=== PATIENT | female | born 1955 | race Caucasian/White ===

== ENCOUNTER 2017-11-15 06:40 | Emergency (ER) | payer BC ==
[~2017-11-15] VITALS: Ht 167.6 cm; Wt 72.6 kg
[~2017-11-15 06:40] MED LIST: ESCI20TA; WELLBUTRIN
[2017-11-15 06:45] VITALS: BP_SYST 209
[2017-11-15] MEDS ORDERED: LABETALOL 100 MG/ 20ML VIAL IVP ONE (07:15)
[2017-11-15] MEDS ORDERED: ONDANSETRON HCL 4 MG/2 ML VIAL IVP ONE ×2 (07:30→08:30)
[2017-11-15 07:43] LABS: BASOPHILS # (AUTO) 0.1 K/uL (0.0-0.2); BASOPHILS % (AUTO) 0.6 % (0.0-2.0); EOSINOPHILS # (AUTO) 0.1 K/uL (0.0-0.4); HEMATOCRIT 48.3 % (36-48); HEMOGLOBIN 16.2 g/dL (12.0-16.0); LYMPHOCYTES # (AUTO) 2.2 K/uL (1.0-5.5); LYMPHOCYTES % (AUTO) 18.8 % (20.5-51.5); MEAN CORPUSCULAR HEMOGLOBIN 29 pg (27-31); MEAN CORPUSCULAR HGB CONC 34 % (32-36); MEAN CORPUSCULAR VOLUME 87 fL (79.0-98.0); MONOCYTES # (AUTO) 0.5 K/uL (0.0-1.0); MONOCYTES % (AUTO) 4.1 % (1.7-9.3); NEUTROPHILS # (AUTO) 8.8 K/uL (1.8-7.7); NEUTROPHILS % (AUTO) 75.5 % (40.0-70.0); PLATELET COUNT (AUTO) 220 K/uL (130-430); RED BLOOD CELL COUNT(AUTO) 5.56 MIL/uL (4.2-6.2); RED CELL DISTRIBUTION WIDTH 14.5 % (9.0-15.0); WHITE BLOOD COUNT (AUTO) 11.6 K/uL (4.8-10.8)
[2017-11-15 07:46] LABS: CALCIUM 9.4 mg/dL (8.4-11.0); CREATININE 0.97 mg/dL (0.55-1.30); POTASSIUM 3.7 mmol/L (3.5-5.1)
[2017-11-15 07:50] LABS: ALBUMIN 4.2 g/dL (3.4-4.8); TOTAL BILIRUBIN 0.3 mg/dL (0.0-1.0)
[2017-11-15 07:55] LABS: INR 0.9 (0.8-1.2); PROTHROMBIN TIME 9.3 SECS (9.5-12.5)
[2017-11-15 08:22] LABS: CKMB RELATIVE INDEX 1.3 (0.0-2.9); CREATINE KINASE MB 2.6 ng/mL (0-3.6)
[2017-11-15] MEDS ORDERED: MORPHINE 4 MG/ML INJ. SYRINGE IVP ONE (08:30)
[2017-11-15] MEDS ORDERED: PROMETHAZINE HCL 25 MG/ML AMP IVP ONE (09:30)
[2017-11-15 10:14] VITALS: BP_SYST 158
== END 2017-11-15 10:14 | disposition home or self-care (01) ==
LOC: SED 06:40
DX: R11.2 Nausea with vomiting, unspecified (principal); R10.13 Epigastric pain; F32.9 Major depressive disorder, single episode, unspecified; K21.9 Gastro-esophageal reflux disease without esophagitis; I10 Essential (primary) hypertension; F17.200 Nicotine dependence, unspecified, uncomplicated
CPT/HCPCS: 36415; 71045; 80053; 82550; 82553; 83690; 84484; 85025; 85610; 93005; 96374; 96375; 96376; 99285; J2270; J2405; J2550; J3490

== ENCOUNTER 2017-11-17 19:37 | Emergency (ER) | payer BC ==
[~2017-11-17] VITALS: Ht 157.5 cm; Wt 84.4 kg
[2017-11-17 19:44] VITALS: BP_SYST 202
[2017-11-17] MEDS: hydrALAZINE HCL 20 MG/ML VIAL IVP ONE ×2 (20:08→20:51)
[2017-11-17] MEDS: ONDANSETRON HCL 4 MG/2 ML VIAL IVP ONE (20:08)
[2017-11-17 20:16] LABS: HEMATOCRIT 48.9 % (36-48); HEMOGLOBIN 16.5 g/dL (12.0-16.0); MEAN CORPUSCULAR HEMOGLOBIN 30 pg (27-31); MEAN CORPUSCULAR HGB CONC 34 % (32-36); MEAN CORPUSCULAR VOLUME 88 fL (79.0-98.0); RED BLOOD CELL COUNT(AUTO) 5.59 MIL/uL (4.2-6.2); WHITE BLOOD COUNT (AUTO) 14.1 K/uL (4.8-10.8)
[2017-11-17 20:17] LABS: BASOPHILS # (AUTO) 0.1 K/uL (0.0-0.2); BASOPHILS % (AUTO) 0.7 % (0.0-2.0); EOSINOPHILS % (AUTO) 0.1 % (0.0-4.0); LYMPHOCYTES # (AUTO) 2.7 K/uL (1.0-5.5); MONOCYTES # (AUTO) 0.8 K/uL (0.0-1.0); MONOCYTES % (AUTO) 5.9 % (1.7-9.3); NEUTROPHILS # (AUTO) 10.5 K/uL (1.8-7.7); NEUTROPHILS % (AUTO) 74.3 % (40.0-70.0); PLATELET COUNT (AUTO) 238 K/uL (130-430); RED CELL DISTRIBUTION WIDTH 13.9 % (9.0-15.0)
[2017-11-17 20:31] LABS: CALCIUM 9.2 mg/dL (8.4-11.0); CREATININE 0.89 mg/dL (0.55-1.30); POTASSIUM 3.4 mmol/L (3.5-5.1); TOTAL BILIRUBIN 0.7 mg/dL (0.0-1.0)
[2017-11-17] MEDS: NS 500 ML IV ONE (20:52)
[2017-11-17] MEDS: KETOROLAC TROMETHAMINE 30 MG VIAL IVP ONE (21:02)
[2017-11-17 21:27] LABS: BILIRUBIN,URINE NEGATIVE (NEGATIVE); CLARITY/URINE CLEAR (CLEAR); COLOR,URINE YELLOW (YELLOW); GLUCOSE,URINE NEGATIVE (NEGATIVE); KETONES,URINE NEGATIVE (NEGATIVE); LEUKOCYTE ESTERASE ,URINE NEGATIVE (NEGATIVE); NITRITE, URINE NEGATIVE (NEGATIVE); PROTEIN URINE 1+ (NEGATIVE); UROBILINOGEN,URINE 0.2 (0.2-1.0)
[2017-11-17 21:30] LABS: BLOOD, URINE TRACE (NEGATIVE)
[2017-11-17 21:38] LABS: BACTERIA,URINE RARE /HPF (None Seen); RBC,URINE 0-3 /HPF (0-3); WBC,URINE 0-3 /HPF (0-3)
[2017-11-17] MEDS: MORPHINE 4 MG/ML INJ. SYRINGE IVP ONE (22:01)
[2017-11-17 23:32] VITALS: BP_SYST 156
== END 2017-11-17 23:32 | disposition home or self-care (01) ==
LOC: SED 19:37
DX: I10 Essential (primary) hypertension (principal); R10.13 Epigastric pain; E86.0 Dehydration; D72.829 Elevated white blood cell count, unspecified; E87.6 Hypokalemia; K21.9 Gastro-esophageal reflux disease without esophagitis; F32.9 Major depressive disorder, single episode, unspecified; F17.210 Nicotine dependence, cigarettes, uncomplicated
CPT/HCPCS: 36415; 71045; 74176; 80053; 81000; 83690; 85025; 96361; 96374; 96375; 96376; 99285; J0360; J1885; J2270; J2405; J7040

== ENCOUNTER 2019-05-04 11:29 | Inpatient (IN) | payer BC ==
[~2019-05-04] VITALS: Ht 157.5 cm; Wt 71.7 kg
[2019-05-04] VITALS (14 sets, daily range): BP systolic 95–151
--- NOTE | 2019-05-04 11:32 | NUR ---
Placed in room 01 . Placed on lunchroom monitor, blood pressure machine and pulse oximeter. To gown for exam. Side rails up.
[2019-05-04] MEDS ORDERED: ALBUTEROL SULFATE 0.083% 2.5 MG/3 ML VIAL.NEB INH ONE (11:45)
[2019-05-04] MEDS ORDERED: IPRATROPIUM BROM 0.5 MG/2.5 ML VIAL.NEB (ATROVENT) INH ONE (11:45)
--- NOTE | 2019-05-04 11:45 | NUR ---
Pt brought by family member, A&Ox4, pt presents to ER with SOB, cough and hepoptysis since last night , pt reports History of lung CA, afebrile, skin pink and warm, cap refill <3, ambulatory, O2 67% at this time, Dr Scott notified, pt placed on 2 L NC.
--- NOTE | 2019-05-04 11:45 | NUR ---
Pt toleratee breathing tx O2 sat improved to 82% on 4l nc.
--- NOTE | 2019-05-04 11:47 | NUR ---
Dr Scott at bedside examining patient
--- NOTE | 2019-05-04 12:15 | NUR ---
Pt receiving ABG.
[2019-05-04 12:28] LABS: BASOPHILS % (AUTO) 0.2 % (0.0-2.0); EOSINOPHILS % (AUTO) 0.5 % (0.0-4.0); HEMATOCRIT 24.6 % (36-48); HEMOGLOBIN 8.2 g/dL (12.0-16.0); LYMPHOCYTES # (AUTO) 1.3 K/uL (1.0-5.5); LYMPHOCYTES % (AUTO) 19.6 % (20.5-51.5); MEAN CORPUSCULAR HEMOGLOBIN 32 pg (27-31); MEAN CORPUSCULAR HGB CONC 34 % (32-36); MEAN CORPUSCULAR VOLUME 95 fL (79.0-98.0); MONOCYTES # (AUTO) 0.4 K/uL (0.0-1.0); MONOCYTES % (AUTO) 5.3 % (1.7-9.3); NEUTROPHILS % (AUTO) 74.4 % (40.0-70.0); PLATELET COUNT (AUTO) 147 K/uL (130-430); RED BLOOD CELL COUNT(AUTO) 2.59 MIL/uL (4.2-6.2); RED CELL DISTRIBUTION WIDTH 19.9 % (9.0-15.0); WHITE BLOOD COUNT (AUTO) 6.7 K/uL (4.8-10.8)
[2019-05-04 12:30] LABS: CALCIUM 9.2 mg/dL (8.4-11.0); CREATININE 1.43 mg/dL (0.55-1.30)
--- NOTE | 2019-05-04 12:40 | NUR ---
Pt reports ease in resp effort. Pt remains in 85-89%.
[2019-05-04 12:42] LABS: POTASSIUM 2.8 mmol/L (3.5-5.1)
[2019-05-04 12:43] LABS: ALBUMIN 2.7 g/dL (3.4-4.8); TOTAL BILIRUBIN 1.1 mg/dL (0.0-1.0)
--- NOTE | 2019-05-04 13:00 | NUR ---
Medication reconciliation completed with information provided by PT. Any prior medication reconciliation on file was reviewed and corrected.
[2019-05-04 13:04] LABS: C-REACTIVE PROTEIN QUANT 35.2 mg/dL (0-0.5)
[2019-05-04] MEDS ORDERED: PIPERACILLIN/TAZOBACTAM 3.375 GM/VIAL (ZOSYN) IV ONE (13:30)
[2019-05-04] MEDS ORDERED: methylPREDNISolone SOD SUCC/PF 62.5 MG/ML VIAL ONE (13:32)
--- NOTE | 2019-05-04 13:35 | NUR ---
Pt reports Chem tx.on thursday
[2019-05-04] MEDS ORDERED: ALBUTEROL SULFATE 0.083% 2.5 MG/3 ML VIAL.NEB INH PRN (13:45)
[2019-05-04] MEDS ORDERED: BUPR75TA20 PO (13:50)
[2019-05-04] MEDS ORDERED: HYDR-4274 PO (13:50)
[2019-05-04] MEDS ORDERED: NEU300 PO (13:50)
[2019-05-04] MEDS ORDERED: ESCI10TA PO (13:50)
[2019-05-04] MEDS ORDERED: POTASSIUM CHLORIDE 20 MEQ/PKT PACKET PO ONE (14:00)
[2019-05-04] MEDS ORDERED: methylPREDNISolone SOD SUCC/PF 62.5 MG/ML VIAL IVP SCH (14:00)
--- NOTE | 2019-05-04 14:00 | NUR ---
2nd lactic acid drawn .Pt solumedrol and Zosyn.
[2019-05-04] MEDS: PIPERACILLIN/TAZO 2.25G/DEX-IS 50 ML IV SCH ×2 (14:15→23:16)
--- NOTE | 2019-05-04 14:30 | NUR ---
Received pt from ER to ICU bed 5 via shaina. Pt alert and c/o SOB. RR 28 and 02 70's with 50% 02 via . Lungs diminished RLL and pt has a very congested coarse cough. Pt is not bringing up sputum at this time, although she says she was in at home. VSS. SR on monitor. 20g Right AC saline lock in place. Abd soft with bowel sounds. No swelling. Good pulses. Will continue to monitor [address] Abrahan monet for consult. Call vilchis in reach.
--- NOTE | 2019-05-04 14:35 | NUR ---
Patient will be admitted to care of . Admitted to ICU unit. Will go to room ICU 5. Belongings list completed. Summary report printed. Report will be given at bedside.
--- NOTE | 2019-05-04 14:52 | NUR ---
CONSULT PAGED CONSULTING MD: DR. VITAL CONSULTING SPECIALITY: PULMO. SPOKE TO: MERCEDES DIALED: [phone] ORDERED BY: DR. CHENG
[2019-05-04] MEDS: GABAPENTIN 300 MG CAPSULE PO SCH ×2 (15:00→20:01)
--- NOTE | 2019-05-04 15:07 | NUR ---
report given to Loren to assume care. Questions answered.
--- NOTE | 2019-05-04 15:07 | NUR ---
Assumed care of pt. Received report from endorsing RN. Pt states no pain at this time and also states, "I feel better than when I came in." Pt situated to room and call light.
--- NOTE | 2019-05-04 15:45 | NUR ---
Patient off unit to radiology via bed with continuous monitoring and O2, RN present.
--- NOTE | 2019-05-04 15:47 | NUR ---
Called Dr. Scott's exchange and requested to speak with him regarding the patient. Spoke with Eri and she said she would page him. Addendum: 05/04/19 at 1551 by Aneta Medina RN Above entry made on the wrong patient
--- NOTE | 2019-05-04 15:50 | NUR ---
Pt return to unit from CT. Situated pt to room. Pt also placed on hi-flow O2 NC 90%. Pt saturating in 80-84%. Pt educated on breathing through nose.
[2019-05-04] MEDS: ALBUTEROL SULFATE 0.083% 2.5 MG/3 ML VIAL.NEB INH SCH ×3 (16:11→23:25)
--- NOTE | 2019-05-04 16:18 | NUR ---
1550 placed pt on hi flow nc. 90% fi02 @55L flow. sat 91% hr 86 rr10. Rn aware. will continue to monitor pt. Addendum: 05/04/19 at 1622 by Luisa Kline RT Amended: Links added.
[2019-05-04] MEDS ORDERED: POTASSIUM CHLORIDE 20 MEQ TAB.PRT.SR PO ONE (17:00)
[2019-05-04] MEDS: 0.45% NACL 1,000 ML IV SCH (17:14)
[2019-05-04] MEDS ORDERED: PIPERACILLIN/TAZO 2.25G/DEX-IS 50 ML IV SCH (18:00)
--- NOTE | 2019-05-04 19:05 | NUR ---
PM ASSESSMENT Pt in bed with eyes open resting comfortably. No signs of acute distress or discomfort noted. Family at bedside. VSS with SR seen on the monitor. Pt on high flow O2 90% fio2, tolerating well with O2 sats @ 93% and even and unlabored breathing. Pt has R AC 20g c/d/i, infusing 1/2 NS @ 60 cc/hr. Pt NPO except meds. Pt uses bedside commode. Pt doesn't verbalize any needs at this time. Bed is locked and lowest position, call light within reach, will cont to monitor.
--- NOTE | 2019-05-04 19:08 | NUR ---
Endorsed plan of care to night baker RN via SBAR and bedside round. Pt states no pain or distress at this time.
[2019-05-04] MEDS: methylPREDNISolone SOD SUCC/PF 62.5 MG/ML VIAL IVP SCH (21:41)
--- NOTE | 2019-05-04 21:41 | NUR ---
Pt in bed with eyes closed resting comfortably, no signs of acute distress or discomfort noted. Scheduled medication solu-medrol 60 mg IVP given per MD order. Pt tolerated medication well. Bed is locked and in lowest position, call light within reach, will cont to monitor pt.
[2019-05-05] VITALS (24 sets, daily range): BP systolic 89–135
--- NOTE | 2019-05-05 01:45 | NUR ---
Pt in bed with eyes closed resting comfortably, no signs of acute distress or discomfort noted. Will cont to monitor pt.
[2019-05-05] MEDS: ALBUTEROL SULFATE 0.083% 2.5 MG/3 ML VIAL.NEB INH SCH ×5 (03:00→23:58)
[2019-05-05] MEDS: PIPERACILLIN/TAZO 2.25G/DEX-IS 50 ML IV SCH ×4 (05:03→23:56)
[2019-05-05] MEDS: methylPREDNISolone SOD SUCC/PF 62.5 MG/ML VIAL IVP SCH ×3 (05:03→21:33)
--- NOTE | 2019-05-05 05:10 | NUR ---
CHG Offered CHG bath to pt at this time but pt refused stating "I'll get it during the day, I want to sleep". Educated pt on the benefits of CHG bath. Will cont to monitor pt.
[2019-05-05 05:33] LABS: HEMATOCRIT 22.8 % (36-48); HEMOGLOBIN 7.7 g/dL (12.0-16.0); LYMPHOCYTES # (AUTO) 0.5 K/uL (1.0-5.5); LYMPHOCYTES % (AUTO) 9.7 % (20.5-51.5); MEAN CORPUSCULAR HEMOGLOBIN 32 pg (27-31); MEAN CORPUSCULAR HGB CONC 34 % (32-36); MEAN CORPUSCULAR VOLUME 94 fL (79.0-98.0); MONOCYTES # (AUTO) 0.1 K/uL (0.0-1.0); NEUTROPHILS # (AUTO) 4.4 K/uL (1.8-7.7); NEUTROPHILS % (AUTO) 88.3 % (40.0-70.0); PLATELET COUNT (AUTO) 122 K/uL (130-430); RED BLOOD CELL COUNT(AUTO) 2.43 MIL/uL (4.2-6.2); RED CELL DISTRIBUTION WIDTH 19.7 % (9.0-15.0)
--- NOTE | 2019-05-05 05:53 | NUR ---
Nutrition Update Gil Scale 16 noted. Pt admitted for Respiratory Failure Diet: NPO BMI: 28.9 kg/m2 RD to follow per nutrition care standards.
[2019-05-05 05:57] LABS: ALBUMIN 2.5 g/dL (3.4-4.8); CREATININE 1.26 mg/dL (0.55-1.30); POTASSIUM 3.2 mmol/L (3.5-5.1); TOTAL BILIRUBIN 0.7 mg/dL (0.0-1.0)
--- NOTE | 2019-05-05 07:05 | NUR ---
Endorsement Received shift report from yelena TANNER
--- NOTE | 2019-05-05 07:10 | NUR ---
AM Assessment Lights off, Pt on Hi-Flow 90%. Bed in Low position locked. Pt resting with no signs of distress.
--- NOTE | 2019-05-05 07:19 | NUR ---
ENDORSEMENT Report given to oncoming dayshift RN using SBAR format and pt care was endorsed. No signs of acute distress or discomfort noted.
--- NOTE | 2019-05-05 07:30 | NUR ---
SCD applied per order.
--- NOTE | 2019-05-05 09:28 | NUR ---
0730 FLOW RATE 50L FI02 90% SAT 95%. PT TOLERATING HI FLOW. Addendum: 05/05/19 at 0929 by Luisa Kline RT Amended: Links added.
[2019-05-05] MEDS: GABAPENTIN 300 MG CAPSULE PO SCH ×3 (09:54→21:33)
[2019-05-05] MEDS: buPROPion HCL 75 MG TABLET PO SCH (09:54)
[2019-05-05] MEDS: CITALOPRAM HYDROBROMIDE 20 MG TABLET PO SCH (09:55)
[2019-05-05] MEDS: 0.45% NACL 1,000 ML IV SCH (09:55)
--- NOTE | 2019-05-05 11:30 | NUR ---
Pt ate 75% of Breakfast. Pt is resting comfortably watching TV with Spouse at bedside. Holding lunch per MD order.
--- NOTE | 2019-05-05 13:50 | NUR ---
SS contact for ICU Pt. HEAD OF SALES AND MARKETING met with pt. who is managed by TAYLA to introduce self an inquiry if there are any SS need. She did not report any at this time. She is waiting for TAYLA to contact her in regards to Palliative and will discuss with them if it is recommended. SS will remain available as needed.
--- NOTE | 2019-05-05 14:15 | NUR ---
MD Rounds Dr Gauthier at bedside.
--- NOTE | 2019-05-05 15:00 | NUR ---
Pt complaining of leg pain 8 out of 10. Will administer PRN Oxy.
[2019-05-05] MEDS ORDERED: MORPHINE 2 MG/ML INJ. SYRINGE IVP PRN (15:30)
[2019-05-05] MEDS ORDERED: guaiFENesin 200 MG/CODEINE 20 MG/ 10 ML UDC PO PRN (15:30)
[2019-05-05] MEDS ORDERED: POTASSIUM CHLORIDE 20 MEQ TAB.PRT.SR PO ONE (15:30)
[2019-05-05] MEDS: HYDROcodone/ACETAMIN 10-325 MG TAB PO PRN ×2 (15:42→22:37)
[2019-05-05 16:13] LABS: PROTHROMBIN TIME 10.2 SECS (9.5-12.5)
--- NOTE | 2019-05-05 16:55 | NUR ---
PM Assessment Pt Finishing dinner with daughter, son, and bedside. Lights on, NS running at 60cc/hr. Bed locked and in lowest position. PT expresses no signs of distress or pain.
--- NOTE | 2019-05-05 17:09 | NUR ---
CHG Pt provided CHG with new linen, pt also provided a warm shampoo cap with a comb out. Pt tolerated well, will continue to monitor.
--- NOTE | 2019-05-05 19:10 | NUR ---
Endorsement Gave end of shift report to night RN
--- NOTE | 2019-05-05 20:00 | NUR ---
AAOX4. ON O2 HIGH FLOW 95% AT 50L/MIN. POX 90%. BREATH SOUNDS WITH ADVENTITIOUS SOUNDS. OCCASIONAL NON-PRODUCTIVE COUGH NOTED. BOWEL SOUNDS(+). PULSES PALPABLE. SKIN W/D. COLOR SATISFACTORY. HOB UP TO COMFORT. SIDE RAILS UP X2. ANNE SCD'S IN PLACE. SR. SON WITH GIRLFRIEND VISITING.
--- NOTE | 2019-05-05 21:00 | NUR ---
AMBULATED OOB TO COMMODE TO URINATE. SELF TORI-CARE. SOB UPON EXERTION. ONE NURSE ASSIST BACK TO BED.
--- NOTE | 2019-05-05 22:40 | NUR ---
NORCO 10-325MG PO GIVEN FOR C/O PAIN IN BOTH LEGS, 6/10 PAIN SCALE.
[2019-05-06] VITALS (19 sets, daily range): BP systolic 111–154
--- NOTE | 2019-05-06 | NUR ---
RESTING. VSS. OCCASIONALLY DANGLES LEGS AT SIDE OF BED.
--- NOTE | 2019-05-06 02:00 | NUR ---
SOUNDLY ASLEEP. NO DISTRESS NOTED. ABLE TO REPOSITION SELF WELL.
--- NOTE | 2019-05-06 03:00 | NUR ---
NORCO 10-325 MG PO GIVEN FOR C/O LEG PAIN, 6/10 PAIN SCALE.
[2019-05-06] MEDS: HYDROcodone/ACETAMIN 10-325 MG TAB PO PRN ×2 (03:07→08:44)
[2019-05-06] MEDS: 0.45% NACL 1,000 ML IV SCH (03:07)
[2019-05-06] MEDS: ALBUTEROL SULFATE 0.083% 2.5 MG/3 ML VIAL.NEB INH SCH ×4 (04:06→15:40)
--- NOTE | 2019-05-06 05:00 | NUR ---
SLEPT FOR LONG PERIODS OF TIME. SATURATES WELL WHEN ASLEEP. OOB TO BSC, VOIDED APPROX 600CC CLEAR JENNIFER URINE. SELF TORI-CARE. BACK TO BED WITHOUT INCIDENCE.
--- NOTE | 2019-05-06 06:00 | NUR ---
ASLEEP. NO DISTRESS NOTED. NO COMPLAINTS OFFERED AT THIS TIME. REMAINS IN GUARDED CONDITION.
[2019-05-06] MEDS: PIPERACILLIN/TAZO 2.25G/DEX-IS 50 ML IV SCH ×2 (06:09→12:05)
[2019-05-06] MEDS: methylPREDNISolone SOD SUCC/PF 62.5 MG/ML VIAL IVP SCH ×2 (06:09→15:17)
[2019-05-06 06:24] LABS: ALBUMIN 2.4 g/dL (3.4-4.8); CREATININE 1.48 mg/dL (0.55-1.30); POTASSIUM 3.4 mmol/L (3.5-5.1); TOTAL BILIRUBIN 0.4 mg/dL (0.0-1.0)
--- NOTE | 2019-05-06 07:30 | NUR ---
AM ASSESSMENT Pt received from night RN using SBAR. Pt resting in bed with eyes closed. No signs of acute distress noted.
[2019-05-06 07:40] LABS: HEMOGLOBIN 7.4 g/dL (12.0-16.0); LYMPHOCYTES # (AUTO) 0.7 K/uL (1.0-5.5); LYMPHOCYTES % (AUTO) 7.3 % (20.5-51.5); MEAN CORPUSCULAR HEMOGLOBIN 32 pg (27-31); MEAN CORPUSCULAR HGB CONC 34 % (32-36); MEAN CORPUSCULAR VOLUME 95 fL (79.0-98.0); MONOCYTES # (AUTO) 0.3 K/uL (0.0-1.0); MONOCYTES % (AUTO) 2.9 % (1.7-9.3); NEUTROPHILS # (AUTO) 8.6 K/uL (1.8-7.7); NEUTROPHILS % (AUTO) 89.8 % (40.0-70.0); PLATELET COUNT (AUTO) 126 K/uL (130-430); RED CELL DISTRIBUTION WIDTH 19.9 % (9.0-15.0); WHITE BLOOD COUNT (AUTO) 9.6 K/uL (4.8-10.8)
[2019-05-06 07:49] LABS: HEMATOCRIT 21.9 % (36-48)
--- NOTE | 2019-05-06 07:50 | NUR ---
RT Note: 0750 Post breathing tx titrated HFNC FiO2 to 80%. RN notified. Will continue to monitor pt and will adjust FiO2 per SpO2 appropriately. SpO2 is within low to mid 90s. Addendum: 05/06/19 at 0850 by Debora Jones RT Amended: Links added.
--- NOTE | 2019-05-06 08:41 | NUR ---
MD Dr. Moncada at bedside with pt.
[2019-05-06] MEDS: GABAPENTIN 300 MG CAPSULE PO SCH ×2 (08:43→15:17)
[2019-05-06] MEDS: CITALOPRAM HYDROBROMIDE 20 MG TABLET PO SCH (08:43)
[2019-05-06] MEDS: buPROPion HCL 75 MG TABLET PO SCH (08:43)
--- NOTE | 2019-05-06 09:50 | NUR ---
RT Note: 0950 Pt placed on NRB per Dr. Gauthier's verbal order. HFNC is on standby at this time. No resp distress noted. V/S are within range. Will continue to monitor pt. FLORES Burton aware.
--- NOTE | 2019-05-06 11:05 | NUR ---
RT Note: 1105 Pt placed on 15LPM venturi mask at 50% FiO2. Pt tolerating well. FLORES marks. Will continue to monitor pt. Addendum: 05/06/19 at 1150 by Debora Jones RT Amended: Links added.
--- NOTE | 2019-05-06 11:29 | NUR ---
LEFT A VOICE MESSAGE WITH HCP CM WRIST HEMMER BIN WILSON, RE: TRANSFER TO [facility] VIA ACLS, ORDERED BY ATTENDING MD DR CHENG.
--- NOTE | 2019-05-06 11:41 | NUR ---
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 I WAS ASKED TO FAX TO [facility] A FACE SHEET WND CM'S TEL NO. , ATTENTION TO MATA.
--- NOTE | 2019-05-06 13:30 | NUR ---
Made a follow up call to Fallon on the transfer status to [facility]. At the moment no word was called to her by [facility]. She will give us a call when acceptance is confirmed and a bed assignment is given.
--- NOTE | 2019-05-06 14:19 | NUR ---
RT Note: 1410 Pt placed on 15LPM NRB mask, 100% FiO2 per Dr. Gauthier. Pt tolerating well. V/S within range. HFNC on standby. Will continue to monitor pt.
--- NOTE | 2019-05-06 14:25 | NUR ---
DARRYL CALLED AND GAVE ROOM E 412. AWAITING FOR TRANSPORT INFO TO [facility].
--- NOTE | 2019-05-06 16:36 | NUR ---
Report Report given to Coy TANNER at [facility] .
--- NOTE | 2019-05-06 16:57 | NUR ---
[facility] providing [facility], all belongings sent with family with the exception of pts lucas enderwilliams. Pt is connected to [facility] transport monitor. No complaints of pain or distress.
== END 2019-05-06 17:10 | disposition short-term general hospital (02) | DRG 189 ==
LOC: SED 11:29 → SIC 13:32
PROVIDERS: ADMIT Internal Medicine Hospice and Palliative Medicine; ATTEND Internal Medicine Hospice and Palliative Medicine
DX: J96.01 Acute respiratory failure with hypoxia (principal); J18.9 Pneumonia, unspecified organism; C34.91 Malignant neoplasm of unspecified part of right bronchus or lung; N17.9 Acute kidney failure, unspecified; J44.0 Chronic obstructive pulmonary disease with (acute) lower respiratory infection; R04.2 Hemoptysis; J98.11 Atelectasis; R91.1 Solitary pulmonary nodule; G89.29 Other chronic pain; D64.9 Anemia, unspecified; I10 Essential (primary) hypertension; Z80.0 Family history of malignant neoplasm of digestive organs; Z82.49 Family history of ischemic heart disease and other diseases of the circulatory system; Z87.891 Personal history of nicotine dependence
CPT/HCPCS: 36415; 36600; 71045; 71250-TC; 80053; 82803-TC; 83605; 83880; 84484; 85025; 85610-TC; 85730-TC; 86140; 87040-TC; 87081; 93005; 94640; 96374; 99285; J2543; J2930; J7613

== ENCOUNTER 2019-05-14 18:50 | Emergency (ER) | payer BC ==
[~2019-05-14] VITALS: Ht 157.5 cm; Wt 65.8 kg
[2019-05-14 18:50] VITALS: BP_SYST 125
[~2019-05-14 18:50] MED LIST changes: +BUPR75TA20 PO; +ESCI10TA PO; +HYDR-4274 PO; +NEU300 PO
[2019-05-14] MEDS ORDERED: NACL 0.9% 1,000 ML IV ONE (19:15)
[2019-05-14 19:46] LABS: BASOPHILS % (AUTO) 0.6 % (0.0-2.0); EOSINOPHILS % (AUTO) 0.6 % (0.0-4.0); HEMOGLOBIN 9.5 g/dL (12.0-16.0); LYMPHOCYTES # (AUTO) 1.2 K/uL (1.0-5.5); LYMPHOCYTES % (AUTO) 16.2 % (20.5-51.5); MEAN CORPUSCULAR HEMOGLOBIN 32 pg (27-31); MEAN CORPUSCULAR HGB CONC 34 % (32-36); MEAN CORPUSCULAR VOLUME 94 fL (79.0-98.0); MONOCYTES # (AUTO) 0.9 K/uL (0.0-1.0); NEUTROPHILS % (AUTO) 70.6 % (40.0-70.0); PLATELET COUNT (AUTO) 291 K/uL (130-430); RED BLOOD CELL COUNT(AUTO) 2.99 MIL/uL (4.2-6.2); RED CELL DISTRIBUTION WIDTH 18.4 % (9.0-15.0); WHITE BLOOD COUNT (AUTO) 7.1 K/uL (4.8-10.8)
[2019-05-14 20:04] LABS: CALCIUM 8.2 mg/dL (8.4-11.0); CREATININE 1.21 mg/dL (0.55-1.30); POTASSIUM 3.6 mmol/L (3.5-5.1)
[2019-05-14 20:09] LABS: ALBUMIN 2.1 g/dL (3.4-4.8); TOTAL BILIRUBIN 0.7 mg/dL (0.0-1.0)
[2019-05-14 20:45] LABS: PROTHROMBIN TIME 10.1 SECS (9.5-12.5)
[2019-05-14] MEDS ORDERED: IPRATROPIUM/ALBUTEROL SULFATE 3 ML AMPUL.NEB (DUONEB) INH ONE (21:30)
[2019-05-14 22:54] VITALS: BP_SYST 125
== END 2019-05-14 22:54 | disposition home or self-care (01) ==
LOC: SED 18:50
DX: R06.03 Acute respiratory distress (principal); R04.2 Hemoptysis; C34.91 Malignant neoplasm of unspecified part of right bronchus or lung; I10 Essential (primary) hypertension; K21.9 Gastro-esophageal reflux disease without esophagitis; F32.9 Major depressive disorder, single episode, unspecified; Z79.899 Other long term (current) drug therapy
CPT/HCPCS: 36415; 71045; 80053; 83605; 83880; 84484; 85025; 85610; 85730; 86886; 86900; 86901; 87040; 94640; 99284; J7030; J7620

== ENCOUNTER 2019-06-05 11:01 | Emergency (ER) | payer BC ==
[~2019-06-05] VITALS: Ht 152.4 cm; Wt 72.6 kg
[2019-06-05 11:02] VITALS: BP_SYST 144
[2019-06-05] MEDS ORDERED: ALBUTEROL SULFATE 0.083% 2.5 MG/3 ML VIAL.NEB INH ONE (11:15)
[2019-06-05] MEDS ORDERED: methylPREDNISolone SOD SUCC/PF 62.5 MG/ML VIAL IVP ONE (11:15)
[2019-06-05 11:27] LABS: BASOPHILS % (AUTO) 0.1 % (0.0-2.0); EOSINOPHILS % (AUTO) 0.2 % (0.0-4.0); HEMATOCRIT 25.5 % (36-48); HEMOGLOBIN 8.5 g/dL (12.0-16.0); LYMPHOCYTES # (AUTO) 0.8 K/uL (1.0-5.5); LYMPHOCYTES % (AUTO) 9.5 % (20.5-51.5); MEAN CORPUSCULAR HEMOGLOBIN 33 pg (27-31); MEAN CORPUSCULAR HGB CONC 33 % (32-36); MEAN CORPUSCULAR VOLUME 99 fL (79.0-98.0); MONOCYTES # (AUTO) 0.6 K/uL (0.0-1.0); MONOCYTES % (AUTO) 6.9 % (1.7-9.3); NEUTROPHILS % (AUTO) 83.3 % (40.0-70.0); PLATELET COUNT (AUTO) 180 K/uL (130-430); RED BLOOD CELL COUNT(AUTO) 2.57 MIL/uL (4.2-6.2); RED CELL DISTRIBUTION WIDTH 20.2 % (9.0-15.0); WHITE BLOOD COUNT (AUTO) 8.4 K/uL (4.8-10.8)
[2019-06-05] MEDS ORDERED: IPRATROPIUM BROM 0.5 MG/2.5 ML VIAL.NEB (ATROVENT) INH ONE (11:30)
[2019-06-05] MEDS ORDERED: NACL 0.9% 1,000 ML IV ONE (11:30)
[2019-06-05 11:42] LABS: CALCIUM 8.8 mg/dL (8.4-11.0); CREATININE 0.92 mg/dL (0.55-1.30); POTASSIUM 3.1 mmol/L (3.5-5.1)
[2019-06-05 11:43] LABS: PROTHROMBIN TIME 10.3 SECS (9.5-12.5)
[2019-06-05 11:47] LABS: ALBUMIN 2.4 g/dL (3.4-4.8); TOTAL BILIRUBIN 0.7 mg/dL (0.0-1.0)
[2019-06-05] MEDS ORDERED: MAGNESIUM OXIDE 400 MG TABLET PO ONE (13:00)
[2019-06-05] MEDS ORDERED: POTASSIUM CHLORIDE 20 MEQ TAB.PRT.SR PO ONE (13:00)
[2019-06-05 13:45] VITALS: BP_SYST 118
== END 2019-06-05 13:43 | disposition home or self-care (01) ==
LOC: SED 11:01
DX: J44.1 Chronic obstructive pulmonary disease with (acute) exacerbation (principal); E87.6 Hypokalemia; C34.91 Malignant neoplasm of unspecified part of right bronchus or lung; I10 Essential (primary) hypertension; F32.9 Major depressive disorder, single episode, unspecified; Z88.8 Allergy status to other drugs, medicaments and biological substances
CPT/HCPCS: 36415; 71045; 80053; 83880; 84484; 85025; 85610; 85730; 93005; 94640; 96361; 96374; 99291; J2930; J7030; J7613